=== PATIENT | female | born 1940 | race Caucasian/White ===

== ENCOUNTER 2019-08-28 12:06 | Outpatient (CLI) | payer MEDICARE, OTHER | END 2019-08-28 23:59 | disposition home or self-care (01) | LOC: CFH 12:06 | PROVIDERS: ATTEND Orthopaedic Surgery | DX: I82.451 Acute embolism and thrombosis of right peroneal vein (principal) | CPT/HCPCS: 36415; 71275; 80053; 83880; 84484; 85025; 93971; 96372; 99284; J1650; Q9967 ==

== ENCOUNTER 2019-08-28 18:06 | Emergency (ER) | payer MEDICARE, OTHER ==
[~2019-08-28] VITALS: BP 169/84; Ht 160 cm; Wt 83.2 kg
[2019-08-28] MEDS ORDERED: SODIUM CHLORIDE FLUSH 10ML SYR IVF ONE (19:00)
[2019-08-28 19:28] LABS: BASOPHILS # (AUTO) 0.03 x10^3/uL (0-0.1); BASOPHILS % (AUTO) 0 % (0-1); EOSINOPHILS # (AUTO) 0.19 x10^3/uL (0-0.4); EOSINOPHILS % (AUTO) 2 % (1-7); LYMPHOCYTES # (AUTO) 1.82 x10^3/uL (1-3.4); LYMPHOCYTES % (AUTO) 21 % (22-44); MD NO; MEAN CORPUSCULAR HEMOGLOBIN 30.6 pg (27.0-34.8); MEAN CORPUSCULAR HGB CONC 32.8 g/dL (32.4-35.8); MEAN CORPUSCULAR VOLUME 93.4 fL (80-100); MEAN PLATELET VOLUME 8.7 fL (7.4-10.4); MONOCYTES # (AUTO) 0.88 x10^3/uL (0.2-0.8); MONOCYTES % (AUTO) 10 % (2-9); NEUTROPHILS # (AUTO) 5.96 x10^3/uL (1.8-6.8); NEUTROPHILS % (AUTO) 67 % (42-75); PLATELET COUNT 352 x10^3/uL (130-400); RED BLOOD COUNT 3.93 x10^6/uL (3.82-5.3); RED CELL DISTRIBUTION WIDTH 13.6 % (9.6-15.2)
[2019-08-28 19:29] LABS: ALANINE AMINOTRANSFERASE 27 U/L (12-78); ALBUMIN 3.7 g/dL (3.4-5.0); ANION GAP 9 mmol/L (5-15); CALCIUM 9.4 mg/dL (8.5-10.1); CHLORIDE 108 mmol/L (98-107); CREATININE 0.88 mg/dL (0.55-1.02)
[2019-08-28 19:34] LABS: ALKALINE PHOSPHATASE 94 U/L (45-117); BILIRUBIN,TOTAL 0.3 mg/dL (0.2-1.0); TOTAL PROTEIN 7.2 g/dL (6.4-8.2); TROPONIN I < 0.015 ng/mL (0.000-0.045)
--- NOTE | 2019-08-28 19:39 | NUR ---
PT ASSISTED TO RR AND BACK INTO BED.
--- NOTE | 2019-08-28 19:55 | NUR ---
PT RETURNED FROM CTA AT THIS TIME.
[2019-08-28] MEDS ORDERED: ENOXAPARIN 80 MG/0.8 ML ONE (20:54)
[2019-08-28] MEDS ORDERED: ENOXAPARIN 80 MG/0.8 ML SQ ONE (21:00)
[2019-08-28] MEDS ORDERED: OMNIPAQUE 350 MG/ML, 100ML BOTTLE ONE (23:57)
== END 2019-08-28 21:14 | disposition home or self-care (01) ==
LOC: ED 21:00
DX: I82.432 Acute embolism and thrombosis of left popliteal vein (principal); R91.1 Solitary pulmonary nodule; I10 Essential (primary) hypertension; Z87.891 Personal history of nicotine dependence
CPT/HCPCS: 36415; 80053; 83880; 84484; 85025; 96372; 99284; J1650; Q9967

== ENCOUNTER → 2019-12-14 | Outpatient (CLI) | payer MEDICARE, OTHER | END | disposition home or self-care (01) | LOC: CVU 12:35 | PROVIDERS: ATTEND Internal Medicine Cardiovascular Disease | DX: I82.401 Acute embolism and thrombosis of unspecified deep veins of right lower extremity (principal); R60.9 Edema, unspecified; M79.669 Pain in unspecified lower leg | CPT/HCPCS: 93922; 93971 ==

== ENCOUNTER 2020-01-21 16:25 | Outpatient (CLI) | payer MEDICARE, OTHER ==
[2020-01-21 17:31] LABS: BASOPHILS # (AUTO) 0.05 x10^3/uL (0-0.1); BASOPHILS % (AUTO) 1 % (0-1); EOSINOPHILS # (AUTO) 0.13 x10^3/uL (0-0.4); EOSINOPHILS % (AUTO) 2 % (1-7); LYMPHOCYTES # (AUTO) 1.77 x10^3/uL (1-3.4); LYMPHOCYTES % (AUTO) 25 % (22-44); MD NO; MEAN CORPUSCULAR HEMOGLOBIN 31.1 pg (27.0-34.8); MEAN CORPUSCULAR HGB CONC 33.6 g/dL (32.4-35.8); MEAN CORPUSCULAR VOLUME 92.5 fL (80-100); MEAN PLATELET VOLUME 9.1 fL (7.4-10.4); MONOCYTES # (AUTO) 0.61 x10^3/uL (0.2-0.8); MONOCYTES % (AUTO) 9 % (2-9); NEUTROPHILS # (AUTO) 4.61 x10^3/uL (1.8-6.8); NEUTROPHILS % (AUTO) 64 % (42-75); PLATELET COUNT 274 x10^3/uL (130-400); RED BLOOD COUNT 4.01 x10^6/uL (3.82-5.3); RED CELL DISTRIBUTION WIDTH 13.6 % (9.6-15.2)
[2020-01-21 17:31] LABS: ALANINE AMINOTRANSFERASE 27 U/L (12-78); ALBUMIN 3.6 g/dL (3.4-5.0); ANION GAP 5 mmol/L (5-15); CALCIUM 8.5 mg/dL (8.5-10.1); CHLORIDE 109 mmol/L (98-107); CREATININE 0.85 mg/dL (0.55-1.02)
[2020-01-21 17:34] LABS: ALKALINE PHOSPHATASE 84 U/L (45-117); BILIRUBIN,TOTAL 0.4 mg/dL (0.2-1.0); TOTAL PROTEIN 7.2 g/dL (6.4-8.2)
[2020-01-21] MEDS ORDERED: OMNIPAQUE 350 MG/ML, 100ML BOTTLE ONE (18:27)
== END 2020-01-21 23:59 | disposition home or self-care (01) ==
LOC: RAD 16:25
PROVIDERS: ATTEND Physician Assistant
DX: K44.9 Diaphragmatic hernia without obstruction or gangrene (principal); K57.51 Diverticulosis of both small and large intestine without perforation or abscess with bleeding; M41.86 Other forms of scoliosis, lumbar region; M43.8X6 Other specified deforming dorsopathies, lumbar region; M51.36 Other intervertebral disc degeneration, lumbar region
CPT/HCPCS: 36415; 74177; 80053; 85025; 86140; Q9967

== ENCOUNTER → 2020-04-22 | Outpatient (CLI) | payer MEDICARE, OTHER ==
[2020-04-22 12:52] LABS: BASOPHILS # (AUTO) 0.02 x10^3/uL (0-0.1); BASOPHILS % (AUTO) 0 % (0-1); EOSINOPHILS # (AUTO) 0.12 x10^3/uL (0-0.4); EOSINOPHILS % (AUTO) 2 % (1-7); LYMPHOCYTES # (AUTO) 1.72 x10^3/uL (1-3.4); LYMPHOCYTES % (AUTO) 23 % (22-44); MD NO; MEAN CORPUSCULAR HEMOGLOBIN 30.7 pg (27.0-34.8); MEAN CORPUSCULAR HGB CONC 32.1 g/dL (32.4-35.8); MEAN CORPUSCULAR VOLUME 95.6 fL (80-100); MEAN PLATELET VOLUME 8.6 fL (7.4-10.4); MONOCYTES # (AUTO) 0.73 x10^3/uL (0.2-0.8); MONOCYTES % (AUTO) 10 % (2-9); NEUTROPHILS # (AUTO) 5.02 x10^3/uL (1.8-6.8); NEUTROPHILS % (AUTO) 66 % (42-75); PLATELET COUNT 281 x10^3/uL (130-400); RED BLOOD COUNT 4.16 x10^6/uL (3.82-5.3); RED CELL DISTRIBUTION WIDTH 13.4 % (9.6-15.2)
[2020-04-22 13:01] LABS: ALBUMIN 3.5 g/dL (3.4-5.0); ANION GAP 5 mmol/L (5-15); CALCIUM 9.6 mg/dL (8.5-10.1); CHLORIDE 110 mmol/L (98-107); CREATININE 0.97 mg/dL (0.55-1.02)
[2020-04-22 13:04] LABS: ALANINE AMINOTRANSFERASE 18 U/L (12-78); ALKALINE PHOSPHATASE 69 U/L (45-117); BILIRUBIN,TOTAL 0.4 mg/dL (0.2-1.0); TOTAL PROTEIN 6.9 g/dL (6.4-8.2)
== END | disposition home or self-care (01) ==
LOC: RAD 12:30
PROVIDERS: ATTEND Internal Medicine Rheumatology
DX: M51.35 Other intervertebral disc degeneration, thoracolumbar region (principal); M48.56XA Collapsed vertebra, not elsewhere classified, lumbar region, initial encounter for fracture; M43.8X4 Other specified deforming dorsopathies, thoracic region; M81.0 Age-related osteoporosis without current pathological fracture; I10 Essential (primary) hypertension; R76.0 Raised antibody titer; I82.90 Acute embolism and thrombosis of unspecified vein; M25.78 Osteophyte, vertebrae; M41.86 Other forms of scoliosis, lumbar region; Z79.899 Other long term (current) drug therapy
CPT/HCPCS: 36415; 72072; 72110; 80053; 82955; 85025; 85041

== ENCOUNTER 2020-05-17 16:53 | Outpatient (CLI) | payer MEDICARE, OTHER | END 2020-05-17 23:59 | disposition home or self-care (01) | LOC: LAB 16:53 | PROVIDERS: ATTEND Internal Medicine Rheumatology | DX: R76.0 Raised antibody titer (principal) | CPT/HCPCS: 36415; 86147 ==

== ENCOUNTER 2020-11-03 14:14 | Outpatient (CLI) | payer MEDICARE, OTHER ==
[2020-11-03] MEDS ORDERED: OMNIPAQUE 350 MG/ML, 100ML BOTTLE ONE (14:30)
== END 2020-11-03 23:59 | disposition home or self-care (01) ==
LOC: RAD 14:14
PROVIDERS: ATTEND Family Medicine
DX: K57.32 Diverticulitis of large intestine without perforation or abscess without bleeding (principal); K57.30 Diverticulosis of large intestine without perforation or abscess without bleeding; M43.8X6 Other specified deforming dorsopathies, lumbar region; I70.0 Atherosclerosis of aorta; K44.9 Diaphragmatic hernia without obstruction or gangrene
CPT/HCPCS: 74177; Q9967

== ENCOUNTER 2021-04-08 09:33 | Outpatient (CLI) | payer MEDICARE, OTHER ==
[2021-04-08 10:07] LABS: BASOPHILS % (AUTO) 1 % (0-1); EOSINOPHILS % (AUTO) 2 % (1-7); LYMPHOCYTES % (AUTO) 30 % (22-44); MEAN CORPUSCULAR HEMOGLOBIN 31.9 pg (27.0-34.8); MEAN CORPUSCULAR HGB CONC 33.4 g/dL (32.4-35.8); MEAN PLATELET VOLUME 8.8 fL (7.4-10.4); MONOCYTES % (AUTO) 10 % (2-9); NEUTROPHILS % (AUTO) 57 % (42-75); PLATELET COUNT 278 x10^3/uL (130-400); RED BLOOD COUNT 4.43 x10^6/uL (3.82-5.3); RED CELL DISTRIBUTION WIDTH 13.2 % (9.6-15.2)
[2021-04-08 10:20] LABS: ALBUMIN 3.6 g/dL (3.4-5.0); ANION GAP 5 mmol/L (5-15); CALCIUM 9.1 mg/dL (8.5-10.1); CHLORIDE 111 mmol/L (98-107)
[2021-04-08 10:33] LABS: ALANINE AMINOTRANSFERASE 30 U/L (12-78); ALKALINE PHOSPHATASE 77 U/L (45-117); BILIRUBIN,TOTAL 0.5 mg/dL (0.2-1.0); CHOL/HDL RATIO 2.2; CHOLESTEROL, TOTAL 173 mg/dL (140-239); HDL CHOL % 45 % (28-40); HDL CHOLESTEROL (DIRECT) 78 mg/dL (40-60); LDL CHOLESTEROL,CALCULATED 71 mg/dL (54-169); LDL/HDL RATIO 0.9 (0.5-3.0); T4 (THYROXINE) 11.2 mcg/dL (4.8-13.9); TOTAL PROTEIN 7.2 g/dL (6.4-8.2); TRIGLYCERIDES 119 mg/dL (50-200); VLDL CHOLESTEROL 24 mg/dL (0-25)
== END 2021-04-08 23:59 | disposition home or self-care (01) ==
LOC: LAB 09:33
PROVIDERS: ATTEND Family Medicine
DX: I10 Essential (primary) hypertension (principal); E03.9 Hypothyroidism, unspecified; E78.00 Pure hypercholesterolemia, unspecified; Z79.01 Long term (current) use of anticoagulants
CPT/HCPCS: 36415; 80053; 80061; 84436; 84443; 84481; 85025